=== PATIENT | male | born 1975 | race Caucasian/White ===

== ENCOUNTER 2016-09-19 16:52 | Emergency (ER) | payer OTHER ==
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
[2016-09-19] MEDS ORDERED: IBUPROFEN800 MG PO (18:44)
== END 2016-09-19 18:44 | disposition home or self-care (01) ==
LOC: SED 16:52
DX: S16.1XXA Strain of muscle, fascia and tendon at neck level, initial encounter (principal); S39.012A Strain of muscle, fascia and tendon of lower back, initial encounter; V49.00XA Driver injured in collision with unspecified motor vehicles in nontraffic accident, initial encounter; Y92.410 Unspecified street and highway as the place of occurrence of the external cause
CPT/HCPCS: 72040; 72100; 99283